=== PATIENT | male | born 1930 | race Caucasian/White ===

== ENCOUNTER 2017-07-10 21:58 | Observation (INO) | payer MEDICARE, BC ==
--- NOTE | 2017-07-10 22:23 | ED ---
General Adult HPI - General Chief complaint: Shortness of Breath Stated complaint: RUTH Time Seen by Provider: 07/10/17 22:11 Source: patient, family, RN notes reviewed, old records reviewed Mode of arrival: wheelchair - History of Present Illness Initial comments: This is a 86-year-old male to the ER for evaluation. Patient coming in for evaluation regarding shortness of breath, dizziness or syncope. Patient has history of diverticulosis. No history of significant GI bleed. Patient's on blood thinners. Patient denies nausea or vomiting. He has been feeling weak. Symptoms for 2 days. Worse over the last day and a half. Worse today. Patient sits on the bathroom to go to the bathroom she does have irritable bowel and goes of breath and breathing often. States he is having bowel movements causing him to feel like he is going to pass out and gets short of breath. - Related Data Home Medications Medication Instructions Recorded Confirmed Acetaminophen [Tylenol Arthritis] 650 mg PO Q8H PRN 07/10/17 07/10/17 Aspirin [Adult Low Dose Aspirin EC] 81 mg PO DAILY 07/10/17 07/10/17 Calcium Carbonate/Vitamin D3 1 tab PO DAILY 07/10/17 07/10/17 [Calcium 600-Vit D3 200 Tablet] Cholecalciferol [Vitamin D3] 1,000 unit PO DAILY 07/10/17 07/10/17 Fexofenadine HCl [Justa Allergy] 180 mg PO DAILY PRN 07/10/17 07/10/17 Imipramine HCl [Tofranil] 25 mg PO DAILY 07/10/17 07/10/17 Loperamide HCl [Imodium A-D] 2 mg PO Q6H PRN 07/10/17 07/10/17 Pyridostigmine [place] [Mestinon] 60 mg PO DAILY 07/10/17 07/10/17 Ranitidine HCl [Zantac] 150 mg PO HS 07/10/17 07/10/17 amLODIPine [Norvasc] 2.5 mg PO DAILY 07/10/17 07/10/17 Allergies Allergy/AdvReac Type Severity Reaction Status Date / Time cephalexin monohydrate Allergy Rash/Hives Verified 07/10/17 22:19 [From Keflex] Penicillins Allergy Swelling Verified 07/10/17 22:19 Sulfa (Sulfonamide Allergy Rash/Hives Verified 07/10/17 22:19 Antibiotics) Tetracyclines Allergy Swelling Verified 07/10/17 22:19 tramadol HCl [From Ultram] Allergy Rash/Hives Verified 07/10/17 22:19 Review of Systems ROS Statement: Those systems with pertinent positive or pertinent negative responses have been documented in the HPI. ROS Other: All systems not noted in ROS Statement are negative. Past Medical History Past Medical History: Hyperlipidemia Additional Past Medical History / Comment(s): mysthenia gravis, diverticulitits , IBS History of Any Multi-Drug Resistant Organisms: None Reported Past Surgical History: Adenoidectomy, Appendectomy, Tonsillectomy Additional Past Surgical History / Comment(s): penile implants, bilateral knees , TURP Past Psychological History: No Psychological Hx Reported Smoking Status: Former smoker Past Alcohol Use History: None Reported Past Drug Use History: None Reported General Exam General appearance: alert, in no apparent distress Head exam: Present: atraumatic, normocephalic, normal inspection Eye exam: Present: normal appearance, PERRL, EOMI. Absent: scleral icterus, conjunctival injection, periorbital swelling ENT exam: Present: normal exam, mucous membranes moist Neck exam: Present: normal inspection. Absent: tenderness, meningismus, lymphadenopathy Respiratory exam: Present: normal lung sounds bilaterally. Absent: respiratory distress, wheezes, rales, rhonchi, stridor Cardiovascular Exam: Present: regular rate, normal rhythm, normal heart sounds. Absent: systolic murmur, diastolic murmur, rubs, gallop, clicks GI/Abdominal exam: Present: soft, normal bowel sounds. Absent: distended, tenderness, guarding, rebound, rigid Rectal exam: Present: black stool Extremities exam: Present: normal inspection, full ROM, normal capillary refill. Absent: tenderness, pedal edema, joint swelling, calf tenderness Back exam: Present: normal inspection Neurological exam: Present: alert, oriented X3, CN II-XII intact Psychiatric exam: Present: normal affect, normal mood Skin exam: Present: warm, dry, intact, normal color. Absent: rash Course Vital Signs 07/10/17 07/10/17 22:02 23:01 Temperature 97.4 F L Pulse Rate 68 70 Respiratory 24 18 Rate Blood Pressure 125/68 110/57 O2 Sat by Pulse 98 100 Oximetry - Reevaluation(s) Reevaluation #1: 07/10/17 23:58 Spoke with patient regarding symptoms were results. Patient does not feel comfortable going home. States he still feels a little weak. EKG Findings - EKG Comments: EKG Findings:: EKG shows sinus bradycardia rate of 54, ND 216, QRS 94, QTC 441 Medical Decision Making - Medical Decision Making 86 male the ER for evaluation, near syncopal event with bowel movements for the last day and a half. Patient denies vomiting or vomiting blood no bright red blood. Patient states that this time when he goes to the bathroom he does get short of breath and feels like he may pass out. Patient will be kept for observation, monitor CBC in the morning - Lab Data Result diagrams: 07/10/17 22:33 07/10/17 22:33 Lab Results 07/10/17 07/10/17 07/10/17 Range/Units 22:33 22:33 22:33 WBC 8.8 (3.8-10.6) k/uL RBC 3.94 L (4.30-5.90) m/uL Hgb 12.0 L (13.0-17.5) gm/dL Hct 36.3 L (39.0-53.0) % MCV 92.2 (80.0-100.0) fL MCH 30.5 (25.0-35.0) pg MCHC 33.1 (31.0-37.0) g/dL RDW 14.5 (11.5-15.5) % Plt Count 143 L (150-450) k/uL Neutrophils % 61 % Lymphocytes % 24 % Monocytes % 8 % Eosinophils % 4 % Basophils % 1 % Neutrophils # 5.3 (1.3-7.7) k/uL Lymphocytes # 2.1 (1.0-4.8) k/uL Monocytes # 0.7 (0-1.0) k/uL Eosinophils # 0.3 (0-0.7) k/uL Basophils # 0.1 (0-0.2) k/uL PT (9.0-12.0) sec INR (<1.2) APTT (22.0-30.0) sec D-Dimer (<0.60) mg/L FEU Sodium 142 (137-145) mmol/L Potassium 4.5 (3.5-5.1) mmol/L Chloride 113 H (98-107) mmol/L Carbon Dioxide 22 (22-30) mmol/L Anion Gap 7 mmol/L BUN 54 H (9-20) mg/dL Creatinine 1.54 H (0.66-1.25) mg/dL Est GFR (MDRD) Af Amer 52 (>60 ml/min/1.73 sqM) Est GFR (MDRD) Non-Af 43 (>60 ml/min/1.73 sqM) Glucose 127 H (74-99) mg/dL Calcium 9.2 (8.4-10.2) mg/dL Phosphorus 3.4 (2.5-4.5) mg/dL Magnesium 1.9 (1.6-2.3) mg/dL Total Bilirubin 0.6 (0.2-1.3) mg/dL AST 21 (17-59) U/L ALT 33 (21-72) U/L Alkaline Phosphatase 83 (38-126) U/L Total Creatine Kinase 67 (55-170) U/L CK-MB (CK-2) 1.2 (0.0-2.4) ng/mL CK-MB (CK-2) Rel Index 1.8 Troponin I <0.012 (0.000-0.034) ng/mL Total Protein 6.5 (6.3-8.2) g/dL Albumin 3.8 (3.5-5.0) g/dL Blood Type Blood Type Recheck Antibody Screen Spec Expiration Date 07/10/17 07/10/17 Range/Units 22:33 22:33 WBC (3.8-10.6) k/uL RBC (4.30-5.90) m/uL Hgb (13.0-17.5) gm/dL Hct (39.0-53.0) % MCV (80.0-100.0) fL MCH (25.0-35.0) pg MCHC (31.0-37.0) g/dL RDW (11.5-15.5) % Plt Count (150-450) k/uL Neutrophils % % Lymphocytes % % Monocytes % % Eosinophils % % Basophils % % Neutrophils # (1.3-7.7) k/uL Lymphocytes # (1.0-4.8) k/uL Monocytes # (0-1.0) k/uL Eosinophils # (0-0.7) k/uL Basophils # (0-0.2) k/uL PT 10.1 (9.0-12.0) sec INR 1.0 (<1.2) APTT 20.4 L (22.0-30.0) sec D-Dimer 0.54 (<0.60) mg/L FEU Sodium (137-145) mmol/L Potassium (3.5-5.1) mmol/L Chloride (98-107) mmol/L Carbon Dioxide (22-30) mmol/L Anion Gap mmol/L BUN (9-20) mg/dL Creatinine (0.66-1.25) mg/dL Est GFR (MDRD) Af Amer (>60 ml/min/1.73 sqM) Est GFR (MDRD) Non-Af (>60 ml/min/1.73 sqM) Glucose (74-99) mg/dL Calcium (8.4-10.2) mg/dL Phosphorus (2.5-4.5) mg/dL Magnesium (1.6-2.3) mg/dL Total Bilirubin (0.2-1.3) mg/dL AST (17-59) U/L ALT (21-72) U/L Alkaline Phosphatase (38-126) U/L Total Creatine Kinase (55-170) U/L CK-MB (CK-2) (0.0-2.4) ng/mL CK-MB (CK-2) Rel Index Troponin I (0.000-0.034) ng/mL Total Protein (6.3-8.2) g/dL Albumin (3.5-5.0) g/dL Blood Type B Positive Blood Type Recheck B Pos Antibody Screen NEGATIVE Spec Expiration Date 07/13/2017 - 2333 Disposition Clinical Impression: Near syncope, Diarrhea, Weakness Disposition: ADMITTED IP TO THIS [facility] Condition: Good Referrals: Tayla Middleton III, MD [Primary Care Provider] - 1-2 days
[2017-07-10] MEDS ORDERED: SODIUM CHLORIDE 0.9% 1,000 ML IV STA (22:25)
[2017-07-10] MEDS ORDERED: SODIUM CHLORIDE 0.9% 500 ML IV STA (22:25)
[2017-07-10 22:55] LABS: Albumin 3.8 g/dL (3.5-5.0); Calcium 9.2 mg/dL (8.4-10.2); Magnesium 1.9 mg/dL (1.6-2.3); Phosphorus 3.4 mg/dL (2.5-4.5); Potassium 4.5 mmol/L (3.5-5.1); Total Bilirubin 0.6 mg/dL (0.2-1.3); Total Protein 6.5 g/dL (6.3-8.2)
--- NOTE | 2017-07-10 22:56 | XR ---
EXAMINATION TYPE: XR chest 2V DATE OF EXAM: 07/10/2017 COMPARISON: NONE HISTORY: Weakness TECHNIQUE: Frontal and lateral views of the chest are obtained. FINDINGS: There is no heart failure nor confluent pneumonic infiltrate. There are chest leads. Costo phrenic angles are clear. There is spurring in the thoracic spine. IMPRESSION: No active cardiopulmonary disease. Mild cardiomegaly.
[2017-07-10 23:01] LABS: Basophils # (A) 0.1 k/uL (0-0.2); Basophils % (A) 1 %; Eosinophils # (A) 0.3 k/uL (0-0.7); Eosinophils % (A) 4 %; HCT 36.3 % (39.0-53.0); Lymphocytes # (A) 2.1 k/uL (1.0-4.8); Lymphocytes % (A) 24 %; MCH 30.5 pg (25.0-35.0); MCHC 33.1 g/dL (31.0-37.0); MCV 92.2 fL (80.0-100.0); Mean Platelet Volume 8.2; Monocytes # (A) 0.7 k/uL (0-1.0); Monocytes % (A) 8 %; Neutrophils # (A) 5.3 k/uL (1.3-7.7); Neutrophils % (A) 61 %; Platelet Count 143 k/uL (150-450); RBC 3.94 m/uL (4.30-5.90); RDW 14.5 % (11.5-15.5); WBC 8.8 k/uL (3.8-10.6)
[2017-07-10 23:07] LABS: D-Dimer 0.54 mg/L FEU (<0.60); Prothrombin Time 10.1 sec (9.0-12.0)
[2017-07-10 23:11] LABS: Creatine Kinase 67 U/L (55-170)
[2017-07-10 23:17] LABS: Partial Thromboplastin Time 20.4 sec (22.0-30.0)
[2017-07-10 23:24] LABS: Creatine Kinase MB 1.2 ng/mL (0.0-2.4); Troponin I <0.012 ng/mL (0.000-0.034)
[2017-07-10] MEDS ORDERED: SODIUM CHLORIDE 0.9% 1,000 ML IV ONE (23:56)
[2017-07-10] MEDS ORDERED: PANTOPRAZOLE 40 MG/10 ML VIAL IVP STA (23:57)
[2017-07-11 02:30] VITALS: BMI 30.1
[2017-07-11] MEDS ORDERED: PANTOPRAZOLE 40 MG/10 ML VIAL IVP SCH (09:00)
[2017-07-11 09:30] VITALS: RESP 16
[2017-07-11] MEDS ORDERED: LORATADINE 10 MG TAB PO PRN (11:03)
[2017-07-11] MEDS ORDERED: LOPERAMIDE 2 MG CAP PO PRN (11:03)
[2017-07-11] MEDS ORDERED: ACETAMINOPHEN TAB 325 MG TAB PO PRN (11:03)
[2017-07-11] MEDS ORDERED: CHOLECALCIFEROL 1,000 UNIT TAB PO SCH (11:15)
[2017-07-11] MEDS ORDERED: PYRIDOSTIGMINE 60 MG TAB PO SCH (11:15)
[2017-07-11] MEDS ORDERED: CALCIUM CARB-VIT D 500MG-200UN 1 EACH TAB PO SCH (11:15)
[2017-07-11] MEDS ORDERED: ASPIRIN 81 MG PO SCH ×2 (11:15→21:00)
[2017-07-11] MEDS ORDERED: IMIPRAMINE 25 MG TAB PO SCH (11:15)
[2017-07-11] MEDS ORDERED: amLODIPine 2.5 MG TAB PO SCH (11:15)
[2017-07-11 16:42] VITALS: BP 144/66; PULSE 68; TEMP 97.3
--- NOTE | 2017-07-11 17:54 | P.HPIM ---
History of Present Illness 46-year-old gentleman now was comparing of for dizziness patient was having diarrhea 3 days ago multiple episodes which made him dehydrated patient has elevated BUN and creatinine patient was hydrated overnight patient dizziness resolved patient is being discharged today. Patient does have history of irritable bowel syndrome because of which patient will take the Imodium for diarrhea after that he got constipated leading to couple.stools yesterday the.stools a secondary to constipation patient had one bowel movement today which is also dark but constipated stool rather than soft stool we see in GI bleed. Patient denied any abdominal pain denied any nausea vomiting. Patient is wishing to go home as he received enough hydration patient will be discharged today. Patient was also lethargic and weak which she believes secondary to his myasthenia gravis which normally happens later in the day and he was also which are of breath. Again he believes secondary to myasthenia gravis but patient said symptoms completely resolved at this point of time. I' ll obtain an outpatient echocardiogram and repeat outpatient basic metabolic profile making sure patient renal function improved. I do not have his baseline creatinine but his BUN and creatinine are 54 and 1.54 respectively patient was asked to drink water appropriately at home. D-dimer was negative Review of Systems REVIEW OF SYSTEMS: CONSTITUTIONAL: No fever, no malaise, no fatigue. HEENT: No recent visual problems or hearing problems. Denied any sore throat. CARDIOVASCULAR: No chest pain, orthopnea, PND, no palpitations, no syncope. PULMONARY: No shortness of breath, no cough, no hemoptysis. GASTROINTESTINAL: No diarrhea, no nausea, no vomiting, no abdominal pain. Normoactive bowel sounds. NEUROLOGICAL: No headaches, no weakness, no numbness. HEMATOLOGICAL: Denies any bleeding or petechiae. GENITOURINARY: Denies any burning micturition, frequency, or urgency. MUSCULOSKELETAL/RHEUMATOLOGICAL: Denies any joint pain, swelling, or any muscle pain. ENDOCRINE: Denies any polyuria or polydipsia. The rest of the 14-point review of systems is negative. Past Medical History Past Medical History: Hyperlipidemia Additional Past Medical History / Comment(s): mysthenia gravis, diverticulitits , IBS History of Any Multi-Drug Resistant Organisms: None Reported Past Surgical History: Adenoidectomy, Appendectomy, Tonsillectomy Additional Past Surgical History / Comment(s): penile implants, bilateral knees , TURP Past Psychological History: No Psychological Hx Reported Smoking Status: Former smoker Past Alcohol Use History: None Reported Past Drug Use History: None Reported Medications and Allergies Home Medications Medication Instructions Recorded Confirmed Type Acetaminophen [Tylenol Arthritis] 650 mg PO Q8H PRN 07/10/17 07/10/17 History Aspirin [Adult Low Dose Aspirin EC] 81 mg PO DAILY 07/10/17 07/10/17 History Calcium Carbonate/Vitamin D3 1 tab PO DAILY 07/10/17 07/10/17 History [Calcium 600-Vit D3 200 Tablet] Cholecalciferol [Vitamin D3] 1,000 unit PO DAILY 07/10/17 07/10/17 History Fexofenadine HCl [Justa Allergy] 180 mg PO DAILY PRN 07/10/17 07/10/17 History Imipramine HCl [Tofranil] 25 mg PO DAILY 07/10/17 07/10/17 History Loperamide HCl [Imodium A-D] 2 mg PO Q6H PRN 07/10/17 07/10/17 History Pyridostigmine [place] [Mestinon] 60 mg PO DAILY 07/10/17 07/10/17 History Ranitidine HCl [Zantac] 150 mg PO HS 07/10/17 07/10/17 History amLODIPine [Norvasc] 2.5 mg PO DAILY 07/10/17 07/10/17 History Allergies Allergy/AdvReac Type Severity Reaction Status Date / Time cephalexin monohydrate Allergy Rash/Hives Verified 07/10/17 22:19 [From Keflex] Penicillins Allergy Swelling Verified 07/10/17 22:19 Sulfa (Sulfonamide Allergy Rash/Hives Verified 07/10/17 22:19 Antibiotics) Tetracyclines Allergy Swelling Verified 07/10/17 22:19 tramadol HCl [From Ultram] Allergy Rash/Hives Verified 07/10/17 22:19 Physical Exam Vitals: Vital Signs Temp Pulse Pulse Resp BP BP Pulse Ox 07/11/17 16:00 97.3 F L 68 16 144/66 96 07/11/17 12:00 97.6 F 71 16 129/60 100 07/11/17 08:00 97.7 F 55 L 16 117/54 97 07/11/17 03:28 55 L 07/11/17 01:22 97.7 F 65 24 139/65 98 02/03/18 00:54 63 17 136/63 100 07/10/17 23:01 70 18 110/57 100 07/10/17 22:02 97.4 F L 68 24 125/68 98 Intake and Output 07/11/17 07/11/17 07/11/17 06:59 14:59 22:59 Other: Voiding Method Toilet Toilet Toilet # Voids 1 Weight 89.811 kg PHYSICAL EXAMINATION: GENERAL: The patient is alert and oriented x3, not in any acute distress. Well developed, well nourished. HEENT: Pupils are round and equally reacting to light. EOMI. No scleral icterus. No conjunctival pallor. Normocephalic, atraumatic. No pharyngeal erythema. No thyromegaly. CARDIOVASCULAR: S1 and S2 present. No murmurs, rubs, or gallops. PULMONARY: Chest is clear to auscultation, no wheezing or crackles. ABDOMEN: Soft, nontender, nondistended, normoactive bowel sounds. No palpable organomegaly. MUSCULOSKELETAL: No joint swelling or deformity. EXTREMITIES: No cyanosis, clubbing, or pedal edema. NEUROLOGICAL: Gross neurological examination did not reveal any focal deficits. SKIN: No rashes. Results CBC & Chem 7: 07/10/17 22:33 07/10/17 22:33 Labs: Abnormal Lab Results - Last 24 Hours (Table) 07/10/17 07/10/17 07/10/17 Range/Units 22:33 22:33 22:33 RBC 3.94 L (4.30-5.90) m/uL Hgb 12.0 L (13.0-17.5) gm/dL Hct 36.3 L (39.0-53.0) % Plt Count 143 L (150-450) k/uL APTT 20.4 L (22.0-30.0) sec Chloride 113 H (98-107) mmol/L BUN 54 H (9-20) mg/dL Creatinine 1.54 H (0.66-1.25) mg/dL Glucose 127 H (74-99) mg/dL Thrombosis Risk Factor Assmnt - Choose All That Apply Each Risk Factor Represents 3 Points: Age 75 years or older Thrombosis Risk Factor Assessment Total Risk Factor Score: 3 Thrombosis Risk Factor Assessment Level: Moderate Risk Assessment and Plan Plan: -Lightheadedness near syncopal episode: Secondary to intravascular depletion patient received appropriate hydration will be discharged today his symptoms resolved. -History of myasthenia gravis. Patient will continue his home medications. -Hyperlipidemia -Acute renal dysfunction: Secondary to intravascular and patient from diarrhea, clinical improvement in his symptoms patient will be discharged to follow with Dr. Middleton as an outpatient
--- NOTE | 2017-07-11 17:54 | P.DS ---
Providers Date of admission: 07/10/17 23:58 Attending physician: Donna Milan Primary care physician: Tayla Middleton Va Hospital Course: Please refer to my HPI Patient Condition at Discharge: Good Plan - Discharge Summary New Discharge Prescriptions: No Action Ranitidine HCl [Zantac] 150 mg PO HS Cholecalciferol [Vitamin D3] 1,000 unit PO DAILY amLODIPine [Norvasc] 2.5 mg PO DAILY Fexofenadine HCl [Justa Allergy] 180 mg PO DAILY PRN PRN Reason: Allergy Symptoms Pyridostigmine [place] [Mestinon] 60 mg PO DAILY Loperamide HCl [Imodium A-D] 2 mg PO Q6H PRN PRN Reason: Diarrhea Imipramine HCl [Tofranil] 25 mg PO DAILY Calcium Carbonate/Vitamin D3 [Calcium 600-Vit D3 200 Tablet] 1 tab PO DAILY Aspirin [Adult Low Dose Aspirin EC] 81 mg PO DAILY Acetaminophen [Tylenol Arthritis] 650 mg PO Q8H PRN PRN Reason: Pain Discharge Medication List Acetaminophen [Tylenol Arthritis] 650 mg PO Q8H PRN 07/10/17 [History] Aspirin [Adult Low Dose Aspirin EC] 81 mg PO DAILY 07/10/17 [History] Calcium Carbonate/Vitamin D3 [Calcium 600-Vit D3 200 Tablet] 1 tab PO DAILY 07/26 [History] Cholecalciferol [Vitamin D3] 1,000 unit PO DAILY 07/10/17 [History] Fexofenadine HCl [Justa Allergy] 180 mg PO DAILY PRN 07/10/17 [History] Imipramine HCl [Tofranil] 25 mg PO DAILY 07/10/17 [History] Loperamide HCl [Imodium A-D] 2 mg PO Q6H PRN 07/10/17 [History] Pyridostigmine [place] [Mestinon] 60 mg PO DAILY 07/10/17 [History] Ranitidine HCl [Zantac] 150 mg PO HS 07/10/17 [History] amLODIPine [Norvasc] 2.5 mg PO DAILY 07/10/17 [History] Follow up Appointment(s)/Referral(s): Tayla Middleton III, MD [Primary Care Provider] - 3 Days Activity/Diet/Wound Care/Special Instructions: op scheduling will call pt with appt for echo. outpatient scheduling # Discharge Disposition: HOME SELF-CARE
[2017-07-11] MEDS ORDERED: FAMOTIDINE 20 MG TAB PO SCH (21:00)
[2017-07-12] MEDS ORDERED: ENOXAPARIN 40 MG/0.4 ML SYRINGE SQ SCH (09:00)
== END 2017-07-11 18:08 | disposition home or self-care (01) ==
LOC: EC 21:58 → 3OBS 23:58
PROVIDERS: ADMIT Internal Medicine; ATTEND Internal Medicine
DX: E86.1 Hypovolemia (principal); K58.0 Irritable bowel syndrome with diarrhea; G70.00 Myasthenia gravis without (acute) exacerbation; N28.9 Disorder of kidney and ureter, unspecified; K57.90 Diverticulosis of intestine, part unspecified, without perforation or abscess without bleeding; E78.5 Hyperlipidemia, unspecified; Z87.891 Personal history of nicotine dependence; Z79.82 Long term (current) use of aspirin; Z79.899 Other long term (current) drug therapy; Z88.0 Allergy status to penicillin; Z88.1 Allergy status to other antibiotic agents; Z88.2 Allergy status to sulfonamides; Z88.5 Allergy status to narcotic agent
CPT/HCPCS: 96361 ×3; 96374 ×2; 99285 ×2; 96375; 36415; 93005; 86900; 86901; 85379; 80053; 82550; 82553; 83735; 84100; 84484; 85025; 85610; 85730; 86850; 71046; G0378 ×2; C9113; 96376